=== PATIENT | female | born 2000 ===

== ENCOUNTER 2020-01-17 12:43 | Emergency (ER) | payer OTHER ==
[~2020-01-17] VITALS: Ht 165.1 cm; Wt 99.8 kg
[2020-01-17] MEDS ORDERED: PEPCID AC20 MG PO (19:14)
== END 2020-01-17 19:12 | disposition home or self-care (01) ==
LOC: EMR PED 12:43 → ER 12:50 → EMR PED 12:50
DX: R10.13 Epigastric pain (principal); R11.0 Nausea; Z03.818 Encounter for observation for suspected exposure to other biological agents ruled out

== ENCOUNTER 2020-01-21 08:09 | Emergency (ER) | payer OTHER ==
[~2020-01-21] VITALS: Ht 165.1 cm; Wt 99.8 kg
[~2020-01-21 08:09] MED LIST: PEPCID AC20 MG PO
[2020-01-21] MEDS ORDERED: CLARITIN-D 121 EACH PO (12:16)
[2020-01-21] MEDS ORDERED: ZITHROMAX500 MG PO (12:16)
[2020-01-21] MEDS ORDERED: PEPCID AC20 MG PO (12:17)
== END 2020-01-21 12:27 | disposition home or self-care (01) ==
LOC: EMR PED 08:09 → ER 08:09
DX: J01.80 Other acute sinusitis (principal); K29.60 Other gastritis without bleeding; B96.0 Mycoplasma pneumoniae [M. pneumoniae] as the cause of diseases classified elsewhere; Z03.818 Encounter for observation for suspected exposure to other biological agents ruled out

== ENCOUNTER → 2020-03-24 | Emergency (ER) | payer OTHER ==
[~2020-03-24] VITALS: Ht 165.1 cm; Wt 101.6 kg
[~2020-03-24] MED LIST changes: +CLARITIN-D 121 EACH PO; +ZITHROMAX500 MG PO
== END | disposition left against medical advice (07) ==
LOC: EMR PED 14:18 → ER 14:18 → EMR PED 14:51
DX: Z53.21 Procedure and treatment not carried out due to patient leaving prior to being seen by health care provider (principal)

== ENCOUNTER 2020-05-16 10:55 | Emergency (ER) | payer OTHER ==
[~2020-05-16] VITALS: Ht 165.1 cm; Wt 100.7 kg
[2020-05-16] MEDS ORDERED: ZOFRAN8 MG (11:15)
[2020-05-16] MEDS ORDERED: PRENATAL + DHA1 EAC1 (11:15)
== END 2020-05-16 15:10 | disposition home or self-care (01) ==
LOC: EMR PED 10:55 → ER 11:07
DX: O98.511 Other viral diseases complicating pregnancy, first trimester (principal); Z3A.10 10 weeks gestation of pregnancy; Z03.818 Encounter for observation for suspected exposure to other biological agents ruled out

== ENCOUNTER → 2020-06-10 | Outpatient (CLI) | payer OTHER ==
[~2020-06-10] MED LIST changes: +PRENATAL + DHA1 EAC1; +ZOFRAN8 MG
== END | disposition home or self-care (01) ==
LOC: PRENATAL 10:30
PROVIDERS: ATTEND Obstetrics & Gynecology Maternal & Fetal Medicine
DX: Z36.89 Encounter for other specified antenatal screening (principal); O36.80X1 Pregnancy with inconclusive fetal viability, fetus 1; Z3A.14 14 weeks gestation of pregnancy

== ENCOUNTER → 2020-07-29 | Outpatient (CLI) | payer OTHER | END | disposition home or self-care (01) | LOC: PRENATAL 10:50 | PROVIDERS: ATTEND Obstetrics & Gynecology Maternal & Fetal Medicine | DX: O35.0XX1 Maternal care for (suspected) central nervous system malformation in fetus, fetus 1 (principal); O35.3XX1 Maternal care for (suspected) damage to fetus from viral disease in mother, fetus 1; O98.512 Other viral diseases complicating pregnancy, second trimester; Z36.89 Encounter for other specified antenatal screening; Z3A.21 21 weeks gestation of pregnancy ==

== ENCOUNTER → 2020-09-11 | Emergency (ER) | payer OTHER ==
[~2020-09-11] VITALS: Ht 165.1 cm; Wt 102.1 kg
== END | disposition home or self-care (01) ==
LOC: ER 04:41
DX: O98.512 Other viral diseases complicating pregnancy, second trimester (principal); B34.9 Viral infection, unspecified; Z34.02 Encounter for supervision of normal first pregnancy, second trimester

== ENCOUNTER → 2020-10-16 | Outpatient (CLI) | payer OTHER | END | disposition home or self-care (01) | LOC: PRENATAL 16:05 | PROVIDERS: ATTEND Obstetrics & Gynecology Maternal & Fetal Medicine | DX: O26.843 Uterine size-date discrepancy, third trimester (principal); O36.8131 Decreased fetal movements, third trimester, fetus 1; O99.213 Obesity complicating pregnancy, third trimester; Z36.89 Encounter for other specified antenatal screening; Z3A.33 33 weeks gestation of pregnancy ==